=== PATIENT | male | born 1980 | race Two or more races ===

== ENCOUNTER 2025-04-25 08:55 | Emergency (ER) | payer OTHER ==
[~2025-04-25] VITALS: Ht 175.3 cm; Wt 90.7 kg
[2025-04-25] MEDS ORDERED: SYMBICORT 16010.2 GM (09:12)
[2025-04-25 10:56] LABS: BASO % 1.5 % (0.1-1.2); EOS # 0.10 (0.04-0.54); EOS % 1.5 % (0.7-7.0); LYMPH # 1.77 (1.18-3.74); LYMPH % 26.1 % (19.3-53.1); MEAN PLATELET VOLUME 11.10 fl (9.4-12.4); MONO # 0.54 (0.24-0.82); MONO % 8.0 % (4.7-12.5); NEUT # 4.24 (1.56-6.13); NEUT % 62.6 % (34.0-71.1); RED CELL DISTRIBUTION WIDTH 11.7 % (11.6-14.4)
[2025-04-25 11:15] LABS: COVID-19 AG NEGATIVE (NEGATIVE)
[2025-04-25 11:23] LABS: ALT/SGPT 49.0 U/L (12-78); AST/SGOT 19.0 U/L (15-37); BILIRUBIN TOTAL 1.13 mg/dL (0.3-1.2); BUN CREA RATIO 15.0 (7.0-25.0); CREATININE SERUM 0.98 mg/dL (0.70-1.30); GFR 83.48; GLOBULINA 3.0 G/DL (2.4-3.5); GLUCOSE FASTING 91.0 mg/dL (65-100); OSMOLALITY SERUM 284.0 MOSM/KG (275-295)
== END 2025-04-25 14:16 | disposition home or self-care (01) ==
LOC: ER 08:55
PROVIDERS: Preventive Medicine Public Health & General Preventive Medicine
DX: R07.89 Other chest pain (principal); Z88.1 Allergy status to other antibiotic agents; J45.909 Unspecified asthma, uncomplicated